=== PATIENT | female | born 1980 | race Caucasian/White ===

== ENCOUNTER → 2016-05-23 | Emergency (ER) | payer SELFPAY ==
[~2016-05-23] MED LIST: ACETAMINOPHEN 160 MG/5 ML ONE; IV NS 0.9% 500 ML IV ONE; SET BURETROL ALARIS 1 EA INFUS.SET MC ONE
--- NOTE | 2016-05-23 13:07 | NUR ---
CALLED IN THE [facility], PATIENT IS NOT AROUND.
--- NOTE | 2016-05-23 13:07 | NUR ---
Patient eloped from facility. ER MD notified.
--- NOTE | 2016-05-23 13:08 | NUR ---
PER PATIENT SPOKE WITH ADMITTING THAT SHE DOES NOT WANT TO BE SEEN ANYMORE. SHE STATED "I WILL GO TO [facility] BECAUSE MY OBGYN IS THERE".
--- NOTE | 2016-05-23 13:16 | NUR ---
UNABLE TO "DEPART" THE PATIENT, "DEPART" BUTTON IS INACTIVE. DECIDED TO JUST ADVANCE THE PATIENT.
== END | disposition left against medical advice (07) ==
LOC: ER 13:07
DX: Z75.3 Unavailability and inaccessibility of health-care facilities (principal)
CPT/HCPCS: A4606; J7040; Z7610